=== PATIENT | female | born 1965 | race American Indian/Alaskan Native ===

== ENCOUNTER 2018-10-22 20:36 | Emergency (ER) | payer SELFPAY | END 2018-10-22 22:15 | disposition left against medical advice (07) | LOC: ED 20:36 ==

== ENCOUNTER 2018-12-07 09:14 | Emergency (ER) | payer SELFPAY ==
[2018-12-07 09:18] VITALS: BP 184/95
[2018-12-07] MEDS ORDERED: TORADOL IM ONE (09:38)
--- NOTE | 2018-12-07 09:41 | Emergency Department Report ---
ED General Adult HPI - General Chief complaint: Pain General Stated complaint: L KNEE/R SHOULDER AND ELBOW PAIN Time Seen by Provider: 12/07/18 09:31 Source: patient Mode of arrival: Ambulatory Limitations: No Limitations - History of Present Illness Initial comments: Patient is 53 years old female with no significant past medical history except for hypertension. Patient presented to the ER complaining of generalized body ache mainly to the left knee and right elbow and right shoulder. Patient stated that she was lifting heavy boxes 2 weeks ago before the symptoms started. Patient denied any other injury or trauma. Patient denied any fever, weakness numbness or tingling sensation. No neck pain, bowel or bladder incontinence. Severity scale (0 -10): 8 - Related Data Previous Rx's Medication Instructions Recorded Last Taken Type RX: Lisinopril 20 mg PO QDAY #30 tablet 10/23/18 Unknown Rx Naproxen [Naprosyn] 500 mg PO BID #14 tablet 12/07/18 Unknown Rx Ondansetron [Zofran Odt] 4 mg PO Q8HR PRN #14 tab.rapdis 12/07/18 Unknown Rx RX: Lisinopril 20 mg PO DAILY #30 tablet 12/07/18 Unknown Rx RX: traMADol [Ultram 50 MG tab] 50 mg PO Q4HR PRN #14 tablet 12/07/18 Unknown Rx Allergies Allergy/AdvReac Type Severity Reaction Status Date / Time No Known Allergies Allergy Unverified 10/22/18 21:06 ED Review of Systems ROS: Stated complaint: L KNEE/R SHOULDER AND ELBOW PAIN Other details as noted in HPI Comment: All other systems reviewed and negative Constitutional: denies: chills, fever Respiratory: denies: orthopnea, shortness of breath, SOB with exertion, SOB at rest, wheezing Cardiovascular: denies: chest pain, palpitations Gastrointestinal: denies: abdominal pain, nausea, vomiting, diarrhea, constipation, hematemesis, hematochezia Musculoskeletal: back pain, arthralgia, myalgia Neurological: denies: headache, weakness ED Past Medical Hx - Past Medical History Previous Medical History?: Yes Hx Hypertension: Yes - Surgical History Past Surgical History?: Yes Hx Cholecystectomy: Yes - Social History Smoking Status: Never Smoker Substance Use Type: Prescribed - Medications Home Medications: Home Medications Medication Instructions Recorded Confirmed Last Taken Type RX: Lisinopril 20 mg PO QDAY #30 tablet 10/23/18 Unknown Rx Naproxen [Naprosyn] 500 mg PO BID #14 tablet 12/07/18 Unknown Rx Ondansetron [Zofran Odt] 4 mg PO Q8HR PRN #14 tab.rapdis 12/07/18 Unknown Rx RX: Lisinopril 20 mg PO DAILY #30 tablet 12/07/18 Unknown Rx RX: traMADol [Ultram 50 MG tab] 50 mg PO Q4HR PRN #14 tablet 12/07/18 Unknown Rx ED Physical Exam - General Limitations: No Limitations General appearance: alert, in no apparent distress - Head Head exam: Present: atraumatic, normocephalic, normal inspection - Eye Eye exam: Present: normal appearance, PERRL - ENT ENT exam: Present: normal exam, normal orophraynx, mucous membranes moist - Neck Neck exam: Present: normal inspection, full ROM. Absent: tenderness, meningismus, lymphadenopathy, thyromegaly - Respiratory Respiratory exam: Present: normal lung sounds bilaterally. Absent: respiratory distress, wheezes, rales, rhonchi, stridor, chest wall tenderness, accessory muscle use, decreased breath sounds, prolonged expiratory - Cardiovascular Cardiovascular Exam: Present: regular rate, normal rhythm, normal heart sounds - GI/Abdominal GI/Abdominal exam: Present: soft, normal bowel sounds. Absent: distended, tenderness, guarding, rebound, rigid, organomegaly, mass, bruit, pulsatile mass - Extremities Exam Extremities exam: Present: normal inspection, full ROM, normal capillary refill - Back Exam Back exam: Present: normal inspection, full ROM. Absent: tenderness, CVA tenderness (R), CVA tenderness (L), muscle spasm, paraspinal tenderness, vertebral tenderness - Neurological Exam Neurological exam: Present: alert, oriented X3, CN II-XII intact, normal gait, reflexes normal - Psychiatric Psychiatric exam: Present: normal mood - Skin Skin exam: Present: warm, intact, normal color ED Course Vital Signs 12/07/18 12/07/18 09:17 09:18 Temperature 97.9 F 97.9 F Pulse Rate 89 89 Respiratory 20 18 Rate Blood Pressure 184/95 Blood Pressure 184/95 [Right] O2 Sat by Pulse 99 99 Oximetry Critical care attestation.: If time is entered above; I have spent that time in minutes in the direct care o f this critically ill patient, excluding procedure time. ED Disposition Clinical Impression: Arthralgia, Sprain of right shoulder Disposition: DC- TO HOME OR SELFCARE Is pt being admited?: No Condition: Stable Instructions: Osteoarthritis (ED), Musculoskeletal Pain (ED) Prescriptions: RX: Lisinopril 20 mg PO DAILY #30 tablet Naproxen [Naprosyn] 500 mg PO BID #14 tablet Ondansetron [Zofran Odt] 4 mg PO Q8HR PRN #14 tab.rapdis PRN Reason: Nausea And Vomiting RX: traMADol [Ultram 50 MG tab] 50 mg PO Q4HR PRN #14 tablet PRN Reason: Pain Referrals: [facility] [Provider Group] - 3-5 Days Forms: Work/School Release Form(ED)
== END 2018-12-07 10:13 | disposition home or self-care (01) ==
LOC: ED 09:14
DX: S43.401A Unspecified sprain of right shoulder joint, initial encounter (principal); M25.562 Pain in left knee; M25.521 Pain in right elbow; I10 Essential (primary) hypertension; Z90.49 Acquired absence of other specified parts of digestive tract; X50.0XXA Overexertion from strenuous movement or load, initial encounter; Y93.89 Activity, other specified; Y92.89 Other specified places as the place of occurrence of the external cause; Y99.8 Other external cause status
CPT/HCPCS: 96372; 99282; J1885